=== PATIENT | female | born 1990 | race African-American/Black ===

== ENCOUNTER 2017-02-02 14:43 | Emergency (ER) | payer MEDICAID, OTHER ==
[~2017-02-02] VITALS: Ht 175.3 cm; Wt 62.0 kg
[2017-02-02 14:54] VITALS: BP 124/82
== END 2017-02-02 17:34 | disposition left against medical advice (07) ==
LOC: ER 14:43
DX: R51 Headache (principal); R42 Dizziness and giddiness; Z53.21 Procedure and treatment not carried out due to patient leaving prior to being seen by health care provider

== ENCOUNTER 2019-08-20 00:08 | Inpatient (IN) | payer MEDICAID ==
[~2019-08-20] VITALS: Ht 160 cm; Wt 104.1 kg
[2019-08-20] VITALS (15 sets, daily range): BP systolic 98–144; BP diastolic 37–88
[~2019-08-20 00:08] MED LIST: AMOX125S12 PO; IBUP-2028 PO; PNV1TABL76 PO
[2019-08-20] MEDS ORDERED: ONDANSETRON HCL 4MG/2ML INJ IV STA (01:05)
[2019-08-20] MEDS ORDERED: SODIUM CHLORIDE 0.9% 1,000 ML IV ONE (01:05)
[2019-08-20] MEDS ORDERED: VISCOUS LIDOCAINE 2% 15 ML UDC PO ONE (01:15)
[2019-08-20] MEDS ORDERED: MAGNESIUM/ALUMINUM HYDROXIDE/SIMETHICONE 30ML UDC PO ONE (01:15)
[2019-08-20 01:31] LABS: BASOPHILS % 0.2 % (0.0-2.0); EOSINOPHILS % 0.6 % (0.0-5.0); HEMATOCRIT. 46.4 % (36.0-48.0); HEMOGLOBIN. 15.7 g/dL (12.0-16.0); LYMPHOCYTES % 25.1 % (20.0-50.0); MEAN CORPUSCULAR HEMOGLOBIN 31.1 pg (28.0-32.0); MEAN CORPUSCULAR VOLUME 91.5 fL (81.0-99.0); MEAN PLATELET VOLUME 11.2 fl (7.4-10.4); MONOCYTES % 4.8 % (2.0-8.0); NEUTROPHILS % 69.3 % (40.0-76.0); PLATELET 198 x1000/uL (130-400); RED BLOOD CELL COUNT 5.07 mill/uL (4.2-5.4); RED CELL DISTRIBUTION WIDTH 14.3 % (11.6-14.6)
[2019-08-20 01:34] LABS: CHLORIDE 107 mEq/L (98-107)
[2019-08-20] MEDS ORDERED: KETOROLAC 30MG/ML VIAL IV ONE (01:45)
[2019-08-20] MEDS ORDERED: ASPIRIN 325MG TABLET PO ONE (01:45)
[2019-08-20 01:46] LABS: CLARITY URINE CLOUDY (CLEAR); COLOR URINE YELLOW (YELLOW); KETONES URINE TRACE (NEGATIVE); LEUKOCYTE ESTERASE URINE TRACE (NEGATIVE); NITRITE URINE NEGATIVE (NEGATIVE); OCCULT BLOOD URINE NEGATIVE (NEGATIVE); PROTEIN URINE NEGATIVE (NEGATIVE); SPECIFIC GRAVITY URINE 1.031 (1.005-1.030); UROBILINOGEN URINE 0.2 E.U./dL (0.2-1.0)
[2019-08-20] MEDS ORDERED: HYDROCODONE/ACETAMINOPHEN 5/325MG TABLET PO PRN (02:45)
[2019-08-20] MEDS ORDERED: MORPHINE SULFATE 2 MG/ML CPJ (NOT FOR IM USE) IV PRN (05:15)
[2019-08-20] MEDS ORDERED: TRAMADOL 50MG TABLET PO PRN (06:00)
[2019-08-20] MEDS ORDERED: ONDANSETRON HCL 4MG/2ML INJ IV PRN (06:00)
[2019-08-20] MEDS ORDERED: CEFTRIAXONE 1 G PREMIX 50 ML IV NR (06:00)
[2019-08-20 08:18] LABS: BASOPHILS % 0.3 % (0.0-2.0); EOSINOPHILS % 0.2 % (0.0-5.0); HEMATOCRIT. 43.2 % (36.0-48.0); HEMOGLOBIN. 14.7 g/dL (12.0-16.0); LYMPHOCYTES % 21.6 % (20.0-50.0); MEAN CORPUSCULAR VOLUME 90.9 fL (81.0-99.0); MEAN PLATELET VOLUME 10.6 fl (7.4-10.4); MONOCYTES % 4.6 % (2.0-8.0); NEUTROPHILS % 73.3 % (40.0-76.0); PLATELET 165 x1000/uL (130-400); RED BLOOD CELL COUNT 4.75 mill/uL (4.2-5.4); RED CELL DISTRIBUTION WIDTH 14.1 % (11.6-14.6)
[2019-08-20 08:27] LABS: CHLORIDE 110 mEq/L (98-107)
[2019-08-20 08:30] LABS: AMYLASE 98 IU/L (25-115)
[2019-08-20 08:35] LABS: CREATINE KINASE 124 IU/L (26-192)
[2019-08-20 08:38] LABS: CREATINE KINASE MB FRACTION < 1.0 ng/mL (0.5-3.6)
[2019-08-20] MEDS: KETOROLAC 30MG/ML VIAL IV SCH ×2 (14:30→21:40)
[2019-08-20] MEDS: PANTOPRAZOLE SODIUM 40 MG/VIAL IV SCH (14:30)
[2019-08-20 17:14] LABS: CREATINE KINASE 94 IU/L (26-192)
[2019-08-20 17:15] LABS: CREATINE KINASE MB FRACTION 1.2 ng/mL (0.5-3.6)
[2019-08-20 21:07] LABS: T4 FREE 0.99 ng/dL (0.76-1.46)
[2019-08-20] MEDS ORDERED: CEFTRIAXONE 1 G PREMIX 50 ML IV SCH (22:00)
[2019-08-21] VITALS (14 sets, daily range): BP systolic 93–138; BP diastolic 47–85
[2019-08-21] MEDS: KETOROLAC 30MG/ML VIAL IV SCH ×2 (05:37→14:12)
[2019-08-21] MEDS: PANTOPRAZOLE SODIUM 40 MG/VIAL IV SCH (09:01)
== END 2019-08-21 21:18 | disposition home or self-care, planned readmission (81) | DRG 241 ==
LOC: ER 00:08 → 3WST 02:17 → ENRESERV 02:26
PROVIDERS: ADMIT Internal Medicine; ATTEND Internal Medicine
DX: K29.70 Gastritis, unspecified, without bleeding (principal); E66.9 Obesity, unspecified; K52.9 Noninfective gastroenteritis and colitis, unspecified; N20.0 Calculus of kidney; N39.0 Urinary tract infection, site not specified; F12.90 Cannabis use, unspecified, uncomplicated; R00.1 Bradycardia, unspecified
CPT/HCPCS: 36415; 71045; 74176; 80048; 80053; 81003; 82150; 82550; 82553; 83735; 83880; 84439; 84443; 84450; 84484; 85025; 93005; 93306; 99285; C9113; J0696; J1885; J2270; J2405; J7030